=== PATIENT | male | born 1935 | race Caucasian/White ===

== ENCOUNTER 2019-09-09 10:05 | Outpatient (CLI) | payer MEDICARE, BC ==
[~2019-09-09 10:05] MED LIST: ALLO100T PO; AMLO5TAB16 PO; CHOL100046 PO; FLO0.4C PO; LISI10TA4 PO; LOVA40TA2 PO; MULT-1141 PO; ONDA8TAB9 PO; PSYL0.525 PO; UBID100C16 PO; WARF-55 PO
== END 2019-09-09 23:59 | disposition home or self-care (01) ==
LOC: VAS 10:05
PROVIDERS: ATTEND Pediatrics Sports Medicine
DX: M17.12 Unilateral primary osteoarthritis, left knee (principal); M79.89 Other specified soft tissue disorders; M25.562 Pain in left knee
CPT/HCPCS: 93971

== ENCOUNTER 2021-08-26 12:51 | Emergency (ER) | payer MEDICARE, BC ==
[~2021-08-26] VITALS: Ht 167.6 cm; Wt 80.5 kg
[~2021-08-26 12:51] MED LIST changes: +LISI10TA27 PO; -LISI10TA4 PO
[2021-08-26 13:05] VITALS: BP 148/57
== END 2021-08-26 20:50 | disposition left against medical advice (07) ==
LOC: ER 12:52
DX: M25.561 Pain in right knee (principal); Z53.21 Procedure and treatment not carried out due to patient leaving prior to being seen by health care provider
CPT/HCPCS: 73564

== ENCOUNTER 2025-05-12 09:10 | Outpatient (CLI) | payer MEDICARE, BC ==
[2025-05-09 09:26] LABS: CREATININE 1.47 MG/DL (0.60-1.10); TOTAL CARBON DIOXIDE 29.7 MMOL/L (24-32); eGFR 45 ML/MIN
[~2025-05-12 09:10] MED LIST changes: -FLO0.4C PO; +TAMS-55 PO
[2025-05-12] MEDS ORDERED: iohexol 300mg/ml 100ml inj. ONE (09:27)
--- NOTE | 2025-05-12 13:30 | RADIOLOGY REPORT ---
Exam: CT CT ABDOMEN PELVIS W/WO IV CONTRAST History: ABN FINDINGS ON DX IMAGING, PANCREAS PROTOCOL COMPARISON: None Technique: Multidetector spiral CT of the abdomen and pelvis was performed from lung bases to pubic symphysis. Intravenous contrast was administered during this examination. Portal venous imaging was obtained. Axial, coronal and sagittal multiplanar reformats were performed by the technologist on a separate workstation. Radiation Dose : 1. Abdomen/Pelvis: CTDIvol 17.3 mGy, DLP 2407 mGy*cm. Findings: Lung Bases: Cardiomegaly. Coronary artery calcifications. Vascular calcifications of the aorta. Small left pleural effusion. Liver: The liver is normal in size. No focal lesions. Normal hepatic vascular enhancement. Gallbladder and Biliary Tree: Unremarkable Spleen: Unremarkable Pancreas: Fatty atrophic changes of the pancreas. 1.8 cm cystic lesion in the pancreatic head. Adrenal Glands: Unremarkable Kidneys: No hydronephrosis. Left upper pole cyst measures 3.0 cm. Bladder: Unremarkable Bowel: Small hiatal hernia. Diverticulosis. Normal appendix is visualized in the right lower quadrant without findings of appendicitis. Ascites: Absent Lymphadenopathy: No mesenteric, retroperitoneal or periportal lymphadenopathy. Abdominal Wall and Mesentery: Unremarkable. Vasculature: The visualized abdominal aorta is normal in size and caliber. There is calcified atherosclerotic plaque involving the aorta and its branches. Abdominal and pelvic vessels demonstrate normal enhancement. Pelvic Organs: Unremarkable Musculoskeletal: No aggressive focal bony lesions, acute fractures or dislocation. Median sternotomy. Degenerative changes of the spine. IMPRESSION: 1.8 cm cystic lesion in the pancreatic head. No suspicious secondary features such as pancreatic duct dilation or enhancing components. This can be further evaluated with nonemergent MRI / MRCP without and with intravenous contrast if clinically indicated. Differential considerations could include pancreatic cyst or IPMN.
== END 2025-05-12 23:59 | disposition home or self-care (01) ==
LOC: RAD 09:10
PROVIDERS: ATTEND Student in an Organized Health Care Education/Training Program
DX: K57.30 Diverticulosis of large intestine without perforation or abscess without bleeding (principal); I25.10 Atherosclerotic heart disease of native coronary artery without angina pectoris; I70.0 Atherosclerosis of aorta; R93.89 Abnormal findings on diagnostic imaging of other specified body structures; I51.7 Cardiomegaly; N28.1 Cyst of kidney, acquired; J90 Pleural effusion, not elsewhere classified; K86.89 Other specified diseases of pancreas; K44.9 Diaphragmatic hernia without obstruction or gangrene
CPT/HCPCS: 36415; 74178; 80053; Q9967